=== PATIENT | male | born 1965 | race Hispanic/Latino ===

== ENCOUNTER → 2017-06-30 | Day surgery (SDC) | payer OTHER ==
--- NOTE | 2017-06-28 11:27 | Diagnostic Imaging Report ---
PROCEDURE: Frontal and lateral views of the chest. COMPARISON: None. INDICATIONS: PREOPERATIVE CHEST XRAY FOR PROSTATE SURGERY FINDINGS: Lines/tubes: None. Lungs: The lungs are well inflated and clear. There is no evidence of pneumonia or pulmonary edema. Pleura: There is no pleural effusion or pneumothorax. Heart and mediastinum: The heart and the mediastinum are normal. Bones: No acute bony abnormality. IMPRESSION: No acute cardiopulmonary disease. Dictated by: Pablo Acevedo M.D. on 06/28/2017 at 11:27 Electronically approved by: Pablo Acevedo M.D. on 06/28/2017 at 11:27
[~2017-06-30] MED LIST: CLINDAMYCIN 300MG 50 ML IV ONE; GENTAMICIN 120MG/NS 100ML 100 ML ONE; PRAVASTATIN SOD10 MG PO
--- OUTSIDE RECORDS SUMMARY | 2017-06-30 05:41 | XMS REPORT ---
Author Author [facility] Address Unknown Phone Unavailable Care Team Providers Care Staff Weapons Officer Name Role Phone ELVA CROW Unavailable Unavailable Problems This patient has no known problems. Allergies, Adverse Reactions, Alerts This patient has no known allergies or adverse reactions. Medications This patient has no known medications. Results Test Description Test Time Test Comments Text Results Atomic Results Result Comments CHEST 2 VIEWS [place] [address] Patient Name: OLVIN DALAL MR #: [id number] : 1965 Age/Sex: 51/M Req # : [id number] Adm Physician: Ordered by: ELVA CROW MD Report #: [id number] Location: OR Room/Bed: Procedure: [id number] DX/CHEST 2 VIEWS Exam Date: 06/28/17 Exam Time: 1050 REPORT STATUS: Signed PROCEDURE: Frontal and lateral views of the chest. COMPARISON: None. INDICATIONS: PREOPERATIVE CHEST XRAY FOR PROSTATE SURGERY FINDINGS: Lines/tubes: None. Lungs: The lungs are well inflated and clear. There is no evidence of pneumonia or pulmonary edema. Pleura: There is no pleural effusion or pneumothorax. Heart and mediastinum: The heart and the mediastinum are normal. Bones: No acute bony abnormality. IMPRESSION: No acute cardiopulmonary disease. Dictated by: Emmy Acevedo M.D. on 06/28/2017 at 11: 27 Electronically approved by: Emmy Acevedo M.D. on 06/28/2017 at 11:27 Dictated By: EMMY ACEVEDO MD 26 COPY TO: ELVA CROW MD
== END | disposition home or self-care (01) ==
LOC: OR 05:38
PROVIDERS: ATTEND Urology
DX: R97.20 Elevated prostate specific antigen [PSA] (principal); N42.89 Other specified disorders of prostate; F17.210 Nicotine dependence, cigarettes, uncomplicated; Z53.09 Procedure and treatment not carried out because of other contraindication
CPT/HCPCS: 71046; 93005; J1580

== ENCOUNTER → 2017-07-07 | Outpatient (CLI) | payer OTHER ==
[~2017-07-07] MED LIST changes: -CLINDAMYCIN 300MG 50 ML IV ONE; -GENTAMICIN 120MG/NS 100ML 100 ML ONE
== END | disposition home or self-care (01) ==
LOC: RAD 05:00 → OR 07:40 → EDSTATUS 10:30
PROVIDERS: ATTEND Urology
DX: N42.89 Other specified disorders of prostate (principal); Z53.09 Procedure and treatment not carried out because of other contraindication